=== PATIENT | male | born 1975 | race African-American/Black ===

== ENCOUNTER 2016-09-02 10:47 | Day surgery (SDC) | payer OTHER ==
[~2016-09-02 10:47] MED LIST: CEFAZOLIN 1 GM/D5W RTU 1 GM/50 ML RTUPB IV PRN; LACTATED RINGERS 1000 ML IV PRN; LIDOCAINE 0.5% INJ-PF (5 MG/ML) 50 ML SDV SUBCUT PRN
[2016-09-02] MEDS ORDERED: BUPIVACAINE HCL 0.5 % INJ/PF 30 ML SDV ONE (11:10)
[2016-09-02] MEDS ORDERED: PROPOFOL INJ 200 MG/20 ML VIAL IV ONE (11:28)
[2016-09-02] MEDS ORDERED: FENTANYL CITRATE INJ/PF 100 MCG/2 ML AMPUL ONE (11:28)
[2016-09-02] MEDS ORDERED: MIDAZOLAM 2 MG/2 ML INJ ONE (11:28)
[2016-09-02] MEDS ORDERED: ONDANSETRON HCL INJ/PF 4 MG/2 ML SDV IV PRN (13:25)
[2016-09-02] MEDS ORDERED: OXYCODONE-ACETAMINOPHEN 5-325 MG TABLET PO PRN (13:25)
--- NOTE | 2016-09-02 13:28 | PDOC DISCHARGE SUMMARY ---
Discharge Summary (SDC) - Discharge Final Diagnosis: Right index finger distal phalanx fracture Date of Surgery: 09/02/16 Discharge Date: 09/02/16 Condition: Good Treatment or Instructions: Schedule Follow Up w/ Dr. Jeff Dangelo @ [facility] to be seen in 10-14 days or as scheduled [place]: [place]: [place]: May remove dressing on postop day #1, keep incision covered and dry. Ice and elevate May begin finger range of motion attempting to make full fist, splint at night. Stool softener of choice when on pain medication. Prescriptions: Hydrocodone/Acetaminophen [[place] 5-325 Tablet] 1 each PO Q6 PRN #08 tablet PRN Reason: Discharge Diet: As Tolerated Discharge Activity: Activity As Tolerated, No Lifting/Push/Pulling Report the Following to Your Physician Immediately: Redness, Swelling, Warmth, Increased Soreness, Numbness, Tingling Sensation
--- NOTE | 2016-09-02 13:34 | Operative Report ---
Operative Report DATE OF SURGERY: 09/02/16 PREOPERATIVE DIAGNOSIS: Retained hardware right index finger POSTOPERATIVE DIAGNOSIS: Same OPERATION: Removal retained k-wire right index finger SURGEON: LIN ROD ANESTHESIA: LMAC COMPLICATIONS: None ESTIMATED BLOOD LOSS: Minimal PROCEDURE: Indication for above procedure: 41-year-old male who sustained injury to his right index finger resulting in a distal phalanx fracture. Patient had delayed follow-up in [facility] at which point we discussed treatment options including continued conservative management versus operative intervention ultimately incision was made to proceed with closed reduction percutaneous pinning right index finger distal phalanx. 6 weeks postoperatively decision was made to proceed with hardware removal. In the office the transarticular K wire was removed unfortunately dorsal blocking pin was unable to be removed thus the decision was made to proceed with operative intervention. Procedure In Detail: Patient was seen and evaluated in the preoperative holding area. The RIGHT upper extremity was initialized and marked. Patient was taken back to the operative room where transferred to the operative table and placed under MAC anesthesia. Once they were adequately anesthetized a surgical team debriefing was performed ensuring all instrumentation was available, the surgical procedure was discussed with possible concerns reviewed. Digital block was performed utilizing 0.5% Marcaine 10 mL. The upper extremity was prepped with chlorhexidine and alcohol and draped in a sterile fashion. A timeout was done identifying correct patient, procedure and extremity everyone in attendance agree with this and verbalized no concerns. A digital tourniquet was placed around the index finger. Transverse skin incision was made at the entry point of the pin. The pin was localized but unable to be grasped. C-arm fluoroscopy was then performed demonstrate further evaluation of the pin volarly. Thus a oblique incision was made centered over the a 4 karen blunt dissection was performed and neurovascular bundle radially and ulnarly were identified and retracted. Small portion of the A1 karen was then opened and the flexor tendons retracted in a radial direction. The pin was then once he could not be grasped at this juncture the patient was first more in a dorsal direction. Once again utilizing the dorsal skin incision the pin was identified and removed in its entirety. Final C-arm fluoroscopy was obtained demonstrating successful removal of hardware. Under live fluoroscopy the distal phalanx fracture was stressed despite the fact there was no complete bony union on radiographs the distal phalanx and its dorsal lip moved as a unit without evidence of loosening. There was no evidence of subluxation. The wounds were then copiously irrigated with normal saline and closed with interrupted 4-0 nylon. Wound was dressed with soft dressing and Coban. Digital tourniquet was removed patient had good peripheral perfusion. Sponge counts, instrument counts, needle counts counts were correct. Patient was then awoken from anesthesia. Transferred from the operating room table to the operating room stretcher. There was no intraoperative complications patient tolerated procedure well stable to PACU. Postoperative plan: Patient will follow-up in the office as scheduled for recheck will obtain radiographs at that time. Meantime patient will begin DIP joint range of motion and we will continue nighttime splinting with the DIP joint in extension.
[2016-09-02] MEDS ORDERED: GLYCOPYRROLATE INJ 0.4 MG/2 ML VIAL ONE (14:05)
[2016-09-02] MEDS ORDERED: LIDOCAINE 2% INJ-PF (20 MG/ML) 10 ML AMPUL ONE (14:05)
[2016-09-02] MEDS ORDERED: ONDANSETRON HCL INJ/PF 4 MG/2 ML SDV ONE (14:05)
[2016-09-02] MEDS ORDERED: METOCLOPRAMIDE HCL INJ/PF 10 MG/2 ML SDV ONE (14:05)
[2016-09-02 15:17] VITALS: BP 130/82
== END 2016-09-02 15:10 | disposition home or self-care (01) ==
LOC: OROUT 10:47
PROVIDERS: ATTEND Orthopaedic Surgery
PROC: 0PPT04Z Removal of Internal Fixation Device from Right Finger Phalanx, Open Approach (ICD-10-PCS; principal; 2016-09-02 12:45)
DX: S62.630D Displaced fracture of distal phalanx of right index finger, subsequent encounter for fracture with routine healing (principal); X58.XXXD Exposure to other specified factors, subsequent encounter
CPT/HCPCS: 73120; 20680; J2250; J0690; J3010; J2765; J2405; J2704; J3490; 01830